=== PATIENT | female | born 1950 | race Caucasian/White ===

== ENCOUNTER 2018-05-20 18:59 | Emergency (ER) | payer MEDICARE, BC ==
[2018-05-20 19:24] VITALS: BP 133/71
--- NOTE | 2018-05-20 20:06 | UC ---
Skin Complaint HPI - HPI Summary HPI Summary: Per professional driver "LEFT RING FINGER LAC WAS CUTTING FROZEN BREAD" -here w/ her Walt. Was abl to get bleeding to stop. round piece of skin cut off the flexor part of distal phalynx. -tetanus UTD w/ of grandchild 2013 - History of Current Complaint Chief Complaint: UCLaceration Time Seen by Provider: 05/20/18 20:01 Stated Complaint: LEFT RING FINGER LACERATION Pain Intensity: 0 - Allergy/Home Medications Allergies/Adverse Reactions: Allergies Allergy/AdvReac Type Severity Reaction Status Date / Time No Known Allergies Allergy Verified 05/20/18 19:24 Home Medications: Home Medications Aspirin 81 mg PO DAILY 05/20/18 [History Confirmed 05/20/18] Cholecalciferol (Vitamin D3) [Vitamin D3] 2,000 unit PO DAILY 05/20/18 [History Confirmed 05/20/18] Omeprazole 20 mg PO DAILY 05/20/18 [History Confirmed 05/20/18] Rosuvastatin (NF) [Crestor (NF)] 5 mg PO DAILY 05/20/18 [History Confirmed 05/20] Review of Systems Constitutional: Negative Skin: Other - lac Eyes: Negative ENT: Negative Respiratory: Negative Cardiovascular: Negative Gastrointestinal: Negative Genitourinary: Negative Motor: Negative Neurovascular: Negative Musculoskeletal: Negative Neurological: Negative Psychological: Negative Is Patient Immunocompromised?: No All Other Systems Reviewed And Are Negative: Yes PMH/Surg Hx/FS Hx/Imm Hx Previously Healthy: Yes Endocrine History: Dyslipidemia - Surgical History Surgical History: Yes Surgery Procedure, Year, and Place: 06/20 VITRECTOMY LEFT EYE FOR MACULAR PUCKER, TUBAL,BREAST BIOPSY 1999. [facility] [place] - Family History Known Family History: Positive: Hypertension - Social History Alcohol Use: Occasionally Substance Use Type: None Smoking Status (MU): Never Smoked Tobacco - Immunization History Most Recent Tetanus Shot: 2013 Physical Exam Triage Information Reviewed: Yes Appearance: Well-Appearing, No Pain Distress, Well-Nourished - very pleasant Vital Signs: Initial Vital Signs Temp 98.5 F 05/20/18 19:21 Pulse 92 05/20/18 19:21 Resp 16 05/20/18 19:21 BP 133/71 05/20/18 19:21 Pulse Ox 99 05/20/18 19:21 Eye Exam: Normal ENT Exam: Normal Respiratory Exam: Normal Respiratory: Positive: Lungs clear Cardiovascular Exam: Normal Cardiovascular: Positive: RRR Musculoskeletal Exam: Normal Neurological Exam: Normal Psychological Exam: Normal Skin: Positive: Other - flexor left ring finger w/ ~ 1/2 cm round superficial lac. Course/Dx - Course Course Of Treatment: Bleeding coming from 2 small capillaries - one distal and one proximal. hemostasis was obtained w/ pressure and ice and application of medical adhesive. Area cleaned gently w/ saline by HILARIO LIZ. steristrips applied , telfa and tubigrip. wedding nad removed. small area of cautery x 2 applied and tolerate well that stopped the 1 capllary from bleeding. verbal consent given. - Differential Diagnoses - Skin Complaint Differential Diagnoses: Other - laceration - Diagnoses Provider Diagnoses: left 4th finger laceration Discharge - Sign-Out/Discharge Documenting (check all that apply): Patient Departure - Discharge Plan Condition: Stable Disposition: HOME Patient Education Materials: Laceration (DC) Referrals: Nathan Diego MD [Primary Care Provider] - 4 Days Additional Instructions: Watch for signs of infection and bleeding. keep area dry and clean. - Billing Disposition and Condition Condition: STABLE Disposition: Home
== END 2018-05-20 21:11 | disposition home or self-care (01) ==
LOC: UCCORT 18:59
DX: S61.215A Laceration without foreign body of left ring finger without damage to nail, initial encounter (principal); W26.0XXA Contact with knife, initial encounter; Y93.G1 Activity, food preparation and clean up; Y92.000 Kitchen of unspecified non-institutional (private) residence as the place of occurrence of the external cause
CPT/HCPCS: 12001; 99201; G0463